=== PATIENT | male | born 1945 | race African-American/Black ===

== ENCOUNTER 2021-04-20 08:34 | Emergency (ER) | payer OTHER, MEDICARE ==
[2021-04-20 09:04] VITALS: BP 151/97; PULSE 78; TEMP 98.1; BMI 27.2
== END 2021-04-20 09:40 | disposition home or self-care (01) ==
LOC: JER 08:34
DX: B02.9 Zoster without complications (principal)
CPT/HCPCS: 99283-25

== ENCOUNTER 2021-11-13 04:20 | Day surgery (SDC) | payer OTHER, MEDICARE ==
[2021-11-12 09:33] VITALS: BMI 27.2
[2021-11-13] MEDS ORDERED: MIDAZOLAM HCL 2 MG/2 ML SINGLE DOSE VIAL ONE (07:43)
[2021-11-13] MEDS ORDERED: PROPOFOL 20 ML ONE ×3 (07:44)
[2021-11-13] MEDS ORDERED: SUCCINYLCHOLINE CHLORIDE 200 MG/10 ML SYRINGE ONE (07:44)
[2021-11-13] MEDS ORDERED: ceFAZolin SODIUM 1 GM VIAL IVPB ONE (07:55)
[2021-11-13] MEDS ORDERED: oxyCODONE HCL 5 MG TABLET PO PRN ×2 (08:39→09:04)
[2021-11-13] MEDS ORDERED: DEXTROSE 5%-0.45% SALINE 1,000 ML IV SCH (08:45)
[2021-11-13] MEDS ORDERED: ONDANSETRON 4 MG/2 ML VIAL IVPUSH PRN (09:04)
[2021-11-13] MEDS ORDERED: LACTATED RINGERS SOLUTION 1,000 ML IV SCH (09:15)
[2021-11-13 12:55] VITALS: BP 149/79; PULSE 74; TEMP 98.8
== END 2021-11-13 12:30 | disposition home or self-care (01) ==
LOC: JASU-SURG 04:20
PROVIDERS: ATTEND Urology
PROC: 0VB60ZZ Excision of Right Tunica Vaginalis, Open Approach (ICD-10-PCS; principal; 2021-11-13 07:30)
DX: N43.3 Hydrocele, unspecified (principal)
CPT/HCPCS: 88302-TC; 94760